=== PATIENT | female | born 1960 | race Caucasian/White ===

== ENCOUNTER 2020-10-21 09:32 | Emergency (ER) | payer SELFPAY ==
--- OUTSIDE RECORDS SUMMARY | 2020-10-21 09:36 | XMS REPORT | Continuity of Care Document ---
:1960 Author Organization [facility] t Address [address] [place] [address] Care Team Providers Name Role Phone Lab, Fam Pob I Attending Clinician Unavailable Doctor Unassigned, Name Attending Clinician Unavailable Problems This patient has no known problems. Allergies, Adverse Reactions, Alerts This patient has no known allergies or adverse reactions. Medications This patient has no known medications. Procedures This patient has no known procedures. Encounters Start End Encounter Admission Attending Care Care Encounter Source Date/Time Date/Time Type Type Clinicians Facility Department ID 2019-12-01 2019-12-01 Laboratory Lab, Adc [facility] [id number] 09:53:04 10:13:04 Only Fam Pob I Health [id number] [place] [id number] Manda [id number] nal [address] 2019-12-01 2019-12-01 Letter Doctor CHERRY [id number] 00:00:00 00:00:00 (Out) UnassignedCHRISTOS [id number] Rote [facility] [id number] 044 Results This patient has no known results.
[2020-10-21] MEDS ORDERED: KETOROLAC 30 MG/ML INJ ONE (10:23)
[2020-10-21] MEDS ORDERED: HYDROCODONE/APAP 7.5/325 MG TAB ONE (10:23)
--- NOTE | 2020-10-21 11:21 | RAD REPORT ---
EXAM DESCRIPTION: CT - Stone Protocol - 10/21/2020 10:25 am CLINICAL HISTORY: Abdominal pain. Right flank pain COMPARISON: None. TECHNIQUE: Computed axial tomography of the abdomen pelvis was obtained without oral or IV contrast. Lack of IV and oral contrast limits evaluation of solid organs, bowel, and vessels. Coronal reformat fidel images were obtained and reviewed. All CT scans are performed using dose optimization technique as appropriate and may include automated exposure control or mA/KV adjustment according to patient size. FINDINGS: A renal calculus is not seen. An ureteral calculus is not noted. A bladder calculus is not present. The liver, spleen, pancreas and adrenals appear grossly normal There is no evidence of diverticulitis. Hysterectomy The wall of the gastric fundus appears thickened IMPRESSION: Negative for a genitourinary calculus Wall of the gastric fundus appears thickened be secondary to incomplete distention or pathology such as inflammation. Follow-up recommended
--- NOTE | 2020-10-21 11:21 | RAD REPORT ---
EXAM DESCRIPTION: CTSpine Lumbar Wo Con10/21/2020 10:24 am CLINICAL HISTORY: Back pain COMPARISON: None TECHNIQUE: Computed axial tomography lumbar spine was obtained with coronal and sagittal reconstruct ion. All CT scans are performed using dose optimization technique as appropriate and may include automated exposure control or mA/KV adjustment according to patient size. FINDINGS: No fracture is seen. No dislocation. No high-grade stenosis is not visualized. Small right lateral disc herniation is suspected at L3-4. Very small right paracentral disc herniation suspected L5-S1 IMPRESSION: Negative for a lumbar fracture. Small right lateral disc herniation is suspected at L3-4. Very small right paracentral disc herniation suspected L5-S1 If clinically indicated further evaluation with nonemergent MRI could be obtained
--- NOTE | 2020-10-21 12:12 | ER ---
Nurse's Notes [facility] Name: Meghan Rivera Age: 60 yrs Sex: Female : 1960 Arrival Date: 10/21/2020 Time: 09:37 Bed 18 Private MD: Diagnosis: Low back pain Presentation: 10/21 09:39 Chief complaint: Patient states: Leon a pop in her back yesterday and then the pain rb3 started and her hands became swollen. Coronavirus screen: At this time, the client does not indicate any symptoms associated with coronavirus-19. Ebola Screen: Patient denies travel to an Ebola-affected area in the 21 days before illness onset. 09:39 Method Of Arrival: Ambulatory rb3 09:39 Initial Sepsis Screen: Does the patient meet any 2 criteria? No. Patient's initial rb3 sepsis screen is negative. Does the patient have a suspected source of infection? No. Patient's initial sepsis screen is negative. Risk Assessment: Do you want to hurt yourself or someone else? Patient reports no desire to harm self or others. Onset of symptoms was October 20, 2020. 09:39 Acuity: BASILIO 3 rb3 Triage Assessment: 09:39 General: Appears uncomfortable, Behavior is calm, cooperative. Pain: Complains of pain rb3 in left mid back and right mid back Pain currently is 7 out of 10 on a pain scale. Pain began 1 day ago. Neuro: Level of Consciousness is awake, alert, obeys commands, Oriented to person, place, time, situation. Cardiovascular: Patient's skin is warm and dry. Respiratory: Airway is patent Respiratory effort is even, unlabored, Respiratory pattern is regular, symmetrical. GI: No signs and/or symptoms were reported involving the gastrointestinal system. : No signs and/or symptoms were reported regarding the genitourinary system. Musculoskeletal: Reports. Historical: - Allergies: 09:39 Sulfa (Sulfonamide Antibiotics); rb3 - Home Meds: :39 None [Active]; rb3 - PMHx: :39 None; rb3 - PSHx: 09:39 titanium cage left arm; Tonsillectomy; bladder tac; Cholecystectomy; cervical fusion; rb3 - Immunization history:: Adult Immunizations up to date. - Social history:: Smoking status: Patient/guardian denies using. Screenin:39 Abuse screen: Denies threats or abuse. Nutritional screening: No deficits noted. rb3 Tuberculosis screening: No symptoms or risk factors identified. Fall Risk None identified. Assessment: 09:39 General: See triage assessmenr. rb3 10:30 Reassessment: Patient appears in no apparent distress at this time. Patient and/or rb3 family updated on plan of care and expected duration. Pain level reassessed. Patient is alert, oriented x 3, equal unlabored respirations, skin warm/dry/pink. 11:29 Reassessment: Patient appears in no apparent distress at this time. Patient and/or rb3 family updated on plan of care and expected duration. Pain level reassessed. Patient is alert, oriented x 3, equal unlabored respirations, skin warm/dry/pink. Pain 3/10. 12:12 Reassessment: Patient appears in no apparent distress at this time. No changes from rb3 previously documented assessment. Vital Signs: 09:39 BP 121 / 92; Pulse 76; Resp 17; Temp 98.3; Pulse Ox 99% ; Weight 65.77 kg; Height 5 ft. rb3 6 in. (167.64 cm); Pain 7/10; 11:29 BP 136 / 59; Pulse 65; Resp 17; Pulse Ox 100% ; Pain 3/10; rb3 09:39 Body Mass Index 23.40 (65.77 kg, 167.64 cm) rb3 ED Course: 09:37 Patient arrived in ED. as 09:37 [facility]onse Hernandez [facility]C [facility] kb 09:37 Cesar Nicholas MD is Attending Physician. kb 09:38 Cheryl Velasco, SAM is Primary Nurse. rb3 09:39 Patient has correct armband on for positive identification. Bed in low position. Call rb3 light in reach. Side rails up X 1. Pulse ox on. NIBP on. 09:39 Arm band placed on right wrist. rb3 09:56 Triage completed. rb3 10:24 CT Lumbar Spine Wo Con In Process Unspecified. EDMS 10:24 CT Stone Protocol In Process Unspecified. EDMS 12:19 No provider procedures requiring assistance completed. Patient did not have IV access rb3 during this emergency room visit. Administered Medications: 10:07 Not Given (Patient Refused; provider notifiedd): Ketorolac 60 mg IM once rb3 10:07 Not Given (Patient Refused; provider notifiedd): [place] (HYDROcodone-acetaminophen) (7.5 rb3 mg-325 mg) 1 tabs PO once; RASS on ADMIN: Combtv4, Very Agttd3, Agttd2, Rstlss1, AlertClm0, Drwsy-1, Lt Sdtn-2, Mod Sdtn-3, Dp Sdtn-4, UnArsble-5 Outcome: 12:12 Discharge ordered by . kb 12:19 Patient left the ED. rb3 12:19 Discharged to home via wheelchair, with friend. rb3 12:19 Condition: stable 12:19 Discharge instructions given to patient, Instructed on discharge instructions, follow up and referral plans. Demonstrated understanding of instructions, follow-up care, Prescriptions given X none Signatures: Dispatcher [employer] EDMonse Richard, LUIGI AGUIRRE-Madie Reagan Rebecca, RN RN rb3
--- NOTE | 2020-10-21 12:13 | EDPHYS ---
Physician Documentation [facility] Name: Meghan Rivera Age: 60 yrs Sex: Female : 1960 Arrival Date: 10/21/2020 Time: 09:37 Bed 18 Private MD: ED Physician Cesar Nicholas HPI: 10/21 15:22 This 60 yrs old Female presents to ER via Ambulatory with complaints of Flank kb Pain. 15:22 The patient complains of pain in the right flank and left flank and lumbar area. The kb pain does not radiate. Onset: The symptoms/episode began/occurred yesterday. Modifying factors: The symptoms are alleviated by nothing. the symptoms are aggravated by nothing. Associated signs and symptoms: Pertinent positives: nausea, vomiting, Pertinent negatives: diarrhea, dizziness, dysuria, fever, urinary frequency, headache, hematuria, pain radiating to the lower extremities. Severity of pain: At its worst the pain was moderate in the emergency department the pain is unchanged. The patient has not experienced similar symptoms in the past. The patient has not recently seen a physician. Pt reports she bent over and twisted yesterday causing pain to back. Denies numbness, tingling, incontinence. . Historical: - Allergies: 09:39 Sulfa (Sulfonamide Antibiotics); rb3 - Home Meds: 09:39 None [Active]; rb3 - PMHx: 09:39 None; rb3 - PSHx: 09:39 titanium cage left arm; Tonsillectomy; bladder tac; Cholecystectomy; cervical fusion; rb3 - Immunization history:: Adult Immunizations up to date. - Social history:: Smoking status: Patient/guardian denies using. ROS: 15:21 Constitutional: Negative for fever, chills, and weight loss. kb 15:21 Back: Positive for pain at rest, pain with movement, of the lumbar area, left flank and right flank. 15:21 All other systems are negative. Exam: 15:22 Constitutional: This is a well developed, well nourished patient who is awake, alert, kb and in no acute distress. Head/Face: Normocephalic, atraumatic. ENT: Moist Mucous membranes Cardiovascular: Regular rate and rhythm with a normal S1 and S2. No gallops, murmurs, or rubs. No pulse deficits. Respiratory: Respirations even and unlabored. No increased work of breathing, no retractions or nasal flaring. Abdomen/GI: Soft, non-tender. No distention Skin: Warm, dry with normal turgor. Normal color. MS/ Extremity: Pulses equal, no cyanosis. Neurovascular intact. Full, normal range of motion. Neuro: Awake and alert, GCS 15, oriented to person, place, time, and situation. Moves all extremities. Normal gait. Psych: Awake, alert, with orientation to person, place and time. Behavior, mood, and affect are within normal limits. 15:22 Back: pain, that is moderate, of the lumbar area, left flank and right flank, ROM is painful, normal spinal alignment noted. Vital Signs: 09:39 BP 121 / 92; Pulse 76; Resp 17; Temp 98.3; Pulse Ox 99% ; Weight 65.77 kg; Height 5 ft. rb3 6 in. (167.64 cm); Pain 7/10; 11:29 BP 136 / 59; Pulse 65; Resp 17; Pulse Ox 100% ; Pain 3/10; rb3 09:39 Body Mass Index 23.40 (65.77 kg, 167.64 cm) rb3 MDM: 09:46 Patient medically screened. kb 11:59 Data reviewed: vital signs, nurses notes. Data interpreted: Pulse oximetry: on room air kb is 100 %. Interpretation: normal. Counseling: I had a detailed discussion with the patient and/or guardian regarding: the historical points, exam findings, and any diagnostic results supporting the discharge/admit diagnosis, radiology results, the need for outpatient follow up, a family practitioner, to return to the emergency department if symptoms worsen or persist or if there are any questions or concerns that arise at home. 10/21 09:52 Order name: CT Lumbar Spine Wo Con; Complete Time: 11:23 kb 10/21 09:52 Order name: CT Stone Protocol; Complete Time: 11:23 kb Administered Medications: 10:07 Not Given (Patient Refused; provider notifiedd): Ketorolac 60 mg IM once rb3 10:07 Not Given (Patient Refused; provider notifiedd): [place] (HYDROcodone-acetaminophen) (7.5 rb3 mg-325 mg) 1 tabs PO once; RASS on ADMIN: Combtv4, Very Agttd3, Agttd2, Rstlss1, AlertClm0, Drwsy-1, Lt Sdtn-2, Mod Sdtn-3, Dp Sdtn-4, UnArsble-5 Disposition Summary: 10/21/20 12:12 Discharge Ordered Location: Home kb Condition: Stable kb Diagnosis - Low back pain kb Followup: kb - With: Emergency Department - When: As needed - Reason: Worsening of condition Followup: kb - With: Private Physician - When: 2 - 3 days - Reason: Recheck today's complaints, Continuance of care, Re-evaluation by your physician Discharge Instructions: - Discharge Summary Sheet kb - Herniated Disk, [id number] kb Forms: - Medication Reconciliation Form kb - Thank You Letter kb - Antibiotic Education kb - Prescription Opioid Use kb Signatures: Dispatcher [employer] Monse Briones, TIMOTHY-C TIMOTHY-Cheryl Portillo, RN RN rb3
[2020-10-21 12:33] VITALS: TEMP 98.3
[2020-10-21 12:34] VITALS: BP 136/59; O2SAT 100
== END 2020-10-21 12:19 | disposition home or self-care (01) ==
LOC: ER 09:32
DX: M54.5 Low back pain (principal); Z88.2 Allergy status to sulfonamides
CPT/HCPCS: 72131; 74176; 76377; 99283

== ENCOUNTER 2022-08-25 13:34 | Emergency (ER) | payer SELFPAY ==
--- OUTSIDE RECORDS SUMMARY | 2022-08-25 13:37 | XMS REPORT | Continuity of Care Document ---
:1960 Author Organization [facility] t Address [address] [place] [address] Care Team Providers Name Role Phone Lab, Adc Fadi Pob I Attending Clinician Unavailable Jeri Agrawal Attending Clinician JERI MOY Attending Clinician Unavailable Doctor Unassigned, [place] Attending Clinician Unavailable Problems This patient has no known problems. Allergies, Adverse Reactions, Alerts Allergy Allergy Status Severity Reaction(s) Onset Inactive Treating Comm ents Source Name Type Date Date Clinician Phenerga Propensi Active Nausea Univer s n ty to and/or 6-16 ity of W/Dextro adverse Vomiting 00:00: [place] methorph reaction 00 Medica l an s Branch Sulfa Propensi Active Swelling Univer s (Sulfona ty to 6-16 ity of mide adverse 00:00: [place] Antibiot reaction 00 Medica l ics) s Branch PHENERGA DRUG Active N/V Univers N 6-16 ity of W/DEXTRO 00:00: [place] METHORPH 00 Medical AN Branch SULFA Drug Active Swelling Univers (SULFONA Class 6-16 ity of MIDE 00:00: [place] ANTIBIOT 00 Medical ICS) Branch Social History Social Habit Start Date Stop Date Quantity Comments Source Sex Assigned At [facility] Medical Branch Alcohol intake 2014-10-09 2014-10-09 [facility] 00:00:00 00:00:00 Medical Branch Smoking Status Start Date Stop Date Source Current every day smoker 2014-10-09 00:00:00 [facility] Medications Ordered Filled Start Stop Current Ordering Indication Dosage Frequency Signature Comments Components Source Medication Medication Date Date Medication? Clinician (SIG) [facility] Yes 1{tbl} Take 1 Tab Uni vers Blue-Sod 6-29 by mouth 4 ity o f Phos-PhSal- 00:00[place] Medical (URIBEL) daily as Branch 118-10-40.8 needed for -36 mg Cap Pain (scale 4-6). [facility] Yes 1{tbl} Take 1 Tab Uni vers Blue-Sod 6-29 by mouth 4 ity o f Phos-PhSal- 00:00[place] (URIBEL) daily as Branch 118-10-40.8 needed for -36 mg Cap Pain (scale 4-6). levofloxaci Yes 500mg Take 1 Tab Univers n 6-16 by mouth ity of (LEVAQUIN) 00:00: every 24 [place] as 500 mg 00 (twenty-fo Medical tablet ur) hours. Branch levofloxaci Yes 500mg Take 1 Tab Univers n 6-16 by mouth ity of (LEVAQUIN) 00:00: every 24 [place] as 500 mg 00 (twenty-fo Medical tablet ur) hours. Branch amitriptyli Yes Univer s ne (ELAVIL) 6-15 ity of 10 mg 00:00: [place] tablet 00 [facility] amitriptyli Yes Univer s ne (ELAVIL) 6-15 ity of 10 mg 00:00: [place] tablet 00 [facility] Procedures This patient has no known procedures. Encounters Start End Encounter Admission Attending Care Care Encounter Source Date/Time Date/Time Type Type Clinicians Facility Department ID 2020-05-21 2020-05-21 Outpatient R [facility] [id number] Univers 10:00:00 10:00:00 ity of [facility] 2019-12-01 2019-12-01 Laboratory Lab, Adc [facility] [id number] 09:53:04 10:13:04 Only Fam Pob I Health [id number] [place] [id number] Professio [phone] nal [address] 2019-12-01 2019-12-01 Laboratory Lab, Adc Fam Pob I [facility] [id number] Univers 09:53:04 10:13:04 Only Jeri Moy [id number] ity of [place] [id number] [place] Professio [phone] Md dical [facility] [address] [place] [address] 2019-12-01 2019-12-01 Outpatient R FARZANEH [facility] [id number] Univers 10:00:00 10:00:00 JERI ity of [facility] 2019-12-01 2019-12-01 Letter Doctor DILIP [id number] Univers 00:00:00 00:00:00 (Out) Unassigned, CHRISTOS [id number] ity of [facility] [facility] [id number] [place] as [phone] [facility] [address] [place] 2019-12-01 2019-12-01 Letter Doctor DILIP [id number] 00:00:00 00:00:00 (Out) Unassigned, CHRISTOS [id number] [place] [facility] [id number] 044 Results This patient has no known results.
--- NOTE | 2022-08-25 14:47 | RAD REPORT ---
EXAM DESCRIPTION: RAD - Femur Right - 08/25/2022 2:36 pm CLINICAL HISTORY: PAIN COMPARISON: No comparisons FINDINGS: No fracture or dislocation seen.
--- NOTE | 2022-08-25 14:48 | RAD REPORT ---
EXAM DESCRIPTION: RAD - Knee Right 3 View - 08/25/2022 2:36 pm CLINICAL HISTORY: Pain;Swelling COMPARISON: No comparisons FINDINGS: No fracture or dislocation seen. Moderate suprapatellar joint effusion. MRI follow-up of t he knee would be recommended on a nonemergent basis to assess for internal derangement.
--- NOTE | 2022-08-25 15:16 | EDPHYS ---
Physician Documentation [facility] Name: Meghan Rivera Age: 62 yrs Sex: Female : 1960 Arrival Date: 08/25/2022 Time: 13:34 Bed 9 Private MD: ED Physician Jose Ruiz HPI: 08/25 15:09 This 62 yrs old Female presents to ER via Ambulatory with complaints of knee injury. rn 15:10 The patient presents with an injury, pain. The complaints affect the right knee. Onset: rn The symptoms/episode began/occurred yesterday. Modifying factors: The symptoms are alleviated by nothing. the symptoms are aggravated by movement, weight bearing, bending knee. Associated signs and symptoms: Pertinent positives: swelling, Pertinent negatives fever, weakness. Severity of symptoms: At their worst the symptoms were moderate, in the emergency department the symptoms are unchanged. The patient has not experienced similar symptoms in the past. The patient has not recently seen a physician. Pt reports injury yesterday, was twirling granddaughter, rotated on right knee, felt pain, increase in swelling today, no fall or direct trauma to knee. Reports pain radiates up thigh. . Historical: - Allergies: 14:00 Sulfa (Sulfonamide Antibiotics); nj1 - PMHx: 14:00 None; nj1 - PSHx: 14:00 bladder tac; cervical fusion; titanium cage left arm; Tonsillectomy; nj1 - Immunization history:: Client reports having NOT received the Covid vaccine. - Social history:: Smoking status: Patient/guardian denies using tobacco, the patient reports quitting approximately 6 years ago. - Family history:: not pertinent. - Hospitalizations: : No recent hospitalization is reported. ROS: 15:10 Constitutional: Negative for fever, chills, and weight loss, Cardiovascular: Negative rn for chest pain, palpitations, and edema, Respiratory: Negative for shortness of breath, cough, wheezing, and pleuritic chest pain, Abdomen/GI: Negative for abdominal pain, diarrhea, and constipation, Back: Negative for injury and pain, : Negative for injury, bleeding, discharge, and swelling, MS/Extremity: + right knee injury and pain Skin: Negative for injury, rash, and discoloration, Neuro: Negative for headache, weakness, numbness, tingling, and seizure. Exam: 15:10 Constitutional: This is a well developed, well nourished patient who is awake, alert, rn appears uncomfortable Skin: Warm, dry MS/ Extremity: Pulses equal, no cyanosis. Neurovascular intact. + knee effusion, no cyanosis, no redness, no warmth, + mild tenderness along medial knee. No bony tenderness. Vital Signs: 13:56 BP 143 / 84; Pulse 79; Resp 16; Temp 98.2(O); Pulse Ox 100% on R/A; Weight 63.96 kg; nj1 Height 5 ft. 6 in. ; Pain 9/10; 13:56 Body Mass Index 22.76 (63.96 kg, 167.64 cm) nj 13:56 Pain Scale: Adult nj1 MDM: 13:53 Patient medically screened. rn 15:10 Differential diagnosis: knee sprain, knee effusion, ligamentous injury. Data reviewed: rn vital signs, nurses notes, radiologic studies, plain films, and as a result, I will discharge patient. Counseling: I had a detailed discussion with the patient and/or guardian regarding: the historical points, exam findings, and any diagnostic results supporting the discharge/admit diagnosis, radiology results, the need for outpatient follow up, to return to the emergency department if symptoms worsen or persist or if there are any questions or concerns that arise at home. Special discussion: I discussed with the patient/guardian in detail that at this point there is no indication for admission to the hospital. It is understood, however, that if the symptoms persist or worsen the patient needs to return immediately for re-evaluation. Further emergent ED testing is not indicated at this point in time. I discussed with the patient/guardian in detail the need to arrange with the PCP or specialist further outpatient testing, MRI, Based on the history and exam findings, there is no indication for further emergent testing or inpatient evaluation. I discussed with the patient/guardian the need to see the orthopedic surgeon for further evaluation of the symptoms. 08/25 14:05 Order name: XRAY Knee RIGHT 3 view; Complete Time: 14:58 rn 08/25 14:05 Order name: XRAY Femur RIGHT; Complete Time: 14:58 rn 08/25 14:59 Order name: Knee Immobilizer; Complete Time: 15:56 rn 08/25 14:59 Order name: Crutches; Complete Time: 15:56 rn Administered Medications: 15:55 Drug: Ketorolac IM 30 mg Route: IM; Site: left deltoid; iw 16:15 Follow up: Response: No adverse reaction; Pain is decreased iw Disposition Summary: 08/25/22 15:15 Discharge Ordered Location: Home rn Problem: new rn Symptoms: have improved rn Condition: Stable rn Diagnosis - Effusion, right knee rn - Sprain of other specified parts of left knee rn Followup: rn - With: Private Physician - When: As needed - Reason: Recheck today's complaints, Re-evaluation by your physician Discharge Instructions: - Discharge Summary Sheet rn - Knee Effusion rn - How to Use a Knee Immobilizer rn - Knee Sprain, Adult rn Forms: - Medication Reconciliation Form rn - Thank You Letter rn - Antibiotic internet sales director - Prescription Opioid Use rn Prescriptions: - Tramadol 50 mg Oral Tablet - take 1 tablet by ORAL route every 8 hours as needed; 12 tablet; Refills: 0, rn Product Selection Permitted Signatures: Dispatcher [employer] Katerin Elaine RN RN Jose Ruiz MD MD rn Jaco, Norma, RN RN [facility] Corrections: (The following items were deleted from the chart) 14:07 14:00 Allergies: Phenergan; pa1 nj1 14:07 14:00 Allergies: Codeine; pa1 nj1 14:07 14:00 Allergies: Morphine; pa1 nj1 14:07 14:00 PSHx: Cholecystectomy; [facility] nj1
--- NOTE | 2022-08-25 15:16 | ER ---
Nurse's Notes [facility] Mindy Name: Meghan Rievra Age: 62 yrs Sex: Female : 1960 Arrival Date: 08/25/2022 Time: 13:34 Bed 9 Private MD: Diagnosis: Effusion, right knee;Sprain of other specified parts of left knee Presentation: 08/25 13:56 Chief complaint: Patient states: Pt was playing/dancing with granddaughter on Thursday nj1 night, twirling and lifting her when suddenly felt like "a truck hit me in the knee" while standing. Cannot remember what happened. Initial Sepsis Screen: Does the patient meet any 2 criteria? No. Patient's initial sepsis screen is negative. Does the patient have a suspected source of infection? No. Patient's initial sepsis screen is negative. Risk Assessment: Do you want to hurt yourself or someone else? Patient reports no desire to harm self or others. Onset of symptoms was August 23, 2022. 13:56 Method Of Arrival: Ambulatory [facility] 13:56 Acuity: BASILIO 3 nj 14:07 Coronavirus screen: Vaccine status: Patient reports being unvaccinated. Ebola Screen: nj1 Patient denies travel to an Ebola-affected area in the 21 days before illness onset. Triage Assessment: 16:00 General: Appears in no apparent distress. Behavior is calm, cooperative. iw Historical: - Allergies: 14:00 Sulfa (Sulfonamide Antibiotics); nj1 - PMHx: 14:00 None; nj1 - PSHx: 14:00 bladder tac; cervical fusion; titanium cage left arm; Tonsillectomy; nj1 - Immunization history:: Client reports having NOT received the Covid vaccine. - Social history:: Smoking status: Patient/guardian denies using tobacco, the patient reports quitting approximately 6 years ago. - Family history:: not pertinent. - Hospitalizations: : No recent hospitalization is reported. Screenin:20 [facility] ED Fall Risk Assessment (Adult) History of falling in the last 3 months, iw including since admission Yes- single mechanical fall (1 pt). Abuse screen: Denies threats or abuse. Denies injuries from another. Nutritional screening: No deficits noted. Tuberculosis screening: No symptoms or risk factors identified. Assessment: 14:15 General: Appears in no apparent distress. Pain: Complains of pain in right knee. Neuro: iw Level of Consciousness is awake, alert, obeys commands, Oriented to person, place, time. Cardiovascular: Patient's skin is warm and dry. Respiratory: Respiratory effort is even, unlabored. Derm: Skin is intact. Vital Signs: 13:56 BP 143 / 84; Pulse 79; Resp 16; Temp 98.2(O); Pulse Ox 100% on R/A; Weight 63.96 kg; nj1 Height 5 ft. 6 in. ; Pain 9/10; 13:56 Body Mass Index 22.76 (63.96 kg, 167.64 cm) nj1 13:56 Pain Scale: Adult [facility] ED Course: 13:38 Patient arrived in ED. mr 13:53 Jose Ruiz MD is Attending Physician. rn 14:00 Triage completed. nj1 14:00 Patient has correct armband on for positive identification. iw 14:08 Arm band placed on right wrist. nj1 14:38 XRAY Knee RIGHT 3 view In Process Unspecified. EDMS 14:38 XRAY Femur RIGHT In Process Unspecified. EDMS 15:55 Katerin Weaver, RN is Primary Nurse. iw 16:21 No provider procedures requiring assistance completed. Patient did not have IV access iw during this emergency room visit. Administered Medications: 15:55 Drug: Ketorolac IM 30 mg Route: IM; Site: left deltoid; iw 16:15 Follow up: Response: No adverse reaction; Pain is decreased iw Medication: 13:56 VIS not applicable for this client. iw Outcome: 15:15 Discharge ordered by . rn 16:21 Discharged to home with crutches, with family. iw 16:21 Condition: good 16:21 Discharge instructions given to patient, Instructed on discharge instructions, follow up and referral plans. 16:22 Patient left the ED. iw Signatures: Dispatcher [employer] [facility] PaezNiru mr Katerin Weaver RN RN iw Jose Ruiz MD MD rn Jaco, Norma, RN RN nj1 Corrections: (The following items were deleted from the chart) 14:07 14:00 Allergies: Phenergan; nj1 nj1 14:07 14:00 Allergies: Codeine; nj1 nj1 14:07 14:00 Allergies: Morphine; sc1 nj1 14:07 14:00 PSHx: Cholecystectomy; nj1 nj1 14:08 13:56 BP 143 / 84; Pulse 79bpm; Resp 16bpm; Pulse Ox 100% RA; nj1 nj1
[2022-08-25] MEDS ORDERED: KETOROLAC 30 MG/ML INJ ONE (15:59)
[2022-08-25 16:26] VITALS: BP 143/84; TEMP 98.2; O2SAT 100
== END 2022-08-25 16:22 | disposition home or self-care (01) ==
LOC: ER 13:34
DX: S83.92XA Sprain of unspecified site of left knee, initial encounter (principal); M25.461 Effusion, right knee; X50.1XXA Overexertion from prolonged static or awkward postures, initial encounter; Y93.41 Activity, dancing; Z88.2 Allergy status to sulfonamides; Z87.891 Personal history of nicotine dependence; Z28.310 Unvaccinated for COVID-19